=== PATIENT | male | born 1945 | race Two or more races ===

== ENCOUNTER 2023-10-29 22:37 | Emergency (ER) | payer MEDICARE, OTHER ==
[~2023-10-29] VITALS: Ht 188 cm; Wt 81.6 kg
[2023-10-29] MEDS ORDERED: ONDANSETRON HCL/PF 4 MG/2 ML VIAL ONE (23:27)
[2023-10-29] MEDS ORDERED: MORPHINE SULFATE INJ 4 MG/ML DISP.SYRIN ONE (23:27)
[2023-10-29 23:39] LABS: BASOPHILS % (AUTO) 0.3 % (0.0-2.0); EOSINOPHILS # (AUTO) 0.1 K/uL (0.0-0.7); EOSINOPHILS % (AUTO) 1.2 % (0.0-6.0); HEMATOCRIT 28 % (39-51); HEMOGLOBIN 9.6 g/dL (13.5-17.5); LYMPHOCYTES # (AUTO) 1.9 K/uL (0.8-4.8); LYMPHOCYTES % (AUTO) 17.4 % (20.0-44.0); MEAN CORPUSCULAR HEMOGLOBIN 30 PG (26.0-33.0); MEAN CORPUSCULAR HGB CONC 35 g/dl (31.0-36.0); MEAN CORPUSCULAR VOLUME 87 fL (80-96); MONOCYTES # (AUTO) 1.5 K/uL (0.1-1.30); NEUTROPHILS # (AUTO) 7.3 K/uL (1.8-8.9); NEUTROPHILS % (AUTO) 67.1 % (43.0-81.0); PLATELET COUNT (AUTO) 188 K/uL (150-450); RED BLOOD CELL COUNT(AUTO) 3.19 MIL/uL (4.5-6.0); RED CELL DISTRIBUTION WIDTH 14.9 % (11.5-15.0); WHITE BLOOD COUNT (AUTO) 10.8 K/uL (4.3-11.0)
[2023-10-29] MEDS: MORPHINE SULFATE INJ 2 MG/ML DISP.SYRIN IV ONE (23:39)
[2023-10-29] MEDS: ONDANSETRON HCL/PF 4 MG/2 ML VIAL IV ONE (23:39)
[2023-10-29 23:46] LABS: ALANINE AMINOTRANSFERASE 24 U/L (12-78); ALBUMIN 2.6 g/dL (3.4-5.0); ALKALINE PHOSPHATASE 104 U/L (46-116); ASPARTATE AMINOTRANSFERASE 24 U/L (15-37); BILIRUBIN,DIRECT 0.3 mg/dL (0.0-0.2); BILIRUBIN,TOTAL 1.6 mg/dL (0.2-1.0); CALCIUM, SERUM 8.8 mg/dL (8.5-10.1); CARBON DIOXIDE 29 mmol/L (21-32); CHLORIDE 97 mmol/L (98-107); CREATININE 0.9 mg/dL (0.6-1.3); GLUCOSE 137 mg/dL (74-106); POTASSIUM 4.1 mmol/L (3.5-5.1); SODIUM SERUM 134 mmol/L (136-145); TOTAL PROTEIN, SERUM 6.8 g/dL (6.4-8.2); UREA NITROGEN, BLOOD 17 mg/dL (7-18)
[2023-10-29 23:48] LABS: INR 1.38 (0.91-1.10); PARTIAL THROMBOPLASTIN TIME 45.6 SEC (24.3-34.3); PROTHROMBIN TIME 14.3 SECS (9.2-11.1)
[2023-10-30] MEDS ORDERED: MORPHINE SULFATE INJ 4 MG/ML DISP.SYRIN ONE ×2 (04:19→08:27)
[2023-10-30] MEDS: MORPHINE SULFATE INJ 2 MG/ML DISP.SYRIN IV ONE (04:43)
[2023-10-30] MEDS: MORPHINE SULFATE INJ 4 MG/ML DISP.SYRIN IV ONE (08:34)
[2023-10-30 09:18] VITALS: BP 145/86; TEMP 98.8; O2SAT 97
== END 2023-10-30 09:19 ==
LOC: ER 22:39
DX: M25.552 Pain in left hip (principal); I10 Essential (primary) hypertension; E78.5 Hyperlipidemia, unspecified; I48.91 Unspecified atrial fibrillation; F03.90 Unspecified dementia, unspecified severity, without behavioral disturbance, psychotic disturbance, mood disturbance, and anxiety; Z86.73 Personal history of transient ischemic attack (TIA), and cerebral infarction without residual deficits; Z88.2 Allergy status to sulfonamides
CPT/HCPCS: 99285; 96374; 96375; 73503; 85025; 80048; 80076; 36415; 85730; 96376; J2270 ×3; J2405; 73502

== ENCOUNTER 2024-09-08 17:42 | Inpatient (IN) | payer MEDICARE, OTHER ==
[~2024-09-08] VITALS: Ht 175.3 cm; Wt 79.5 kg
[~2024-09-08 17:42] MED LIST: ARGI1POW13 PO
[2024-09-08 18:13] LABS: BASOPHILS % (AUTO) 0.5 % (0.0-2.0); EOSINOPHILS # (AUTO) 0.1 K/uL (0.0-0.7); EOSINOPHILS % (AUTO) 2.2 % (0.0-6.0); HEMATOCRIT 41 % (39-51); HEMOGLOBIN 14.1 g/dL (13.5-17.5); LYMPHOCYTES # (AUTO) 1.1 K/uL (0.8-4.8); LYMPHOCYTES % (AUTO) 16.8 % (20.0-44.0); MEAN CORPUSCULAR HEMOGLOBIN 30 PG (26.0-33.0); MEAN CORPUSCULAR HGB CONC 34 g/dl (31.0-36.0); MEAN CORPUSCULAR VOLUME 88 fL (80-96); MONOCYTES # (AUTO) 0.6 K/uL (0.1-1.30); MONOCYTES % (AUTO) 9.3 % (2.0-12.0); NEUTROPHILS # (AUTO) 4.5 K/uL (1.8-8.9); NEUTROPHILS % (AUTO) 71.2 % (43.0-81.0); PLATELET COUNT (AUTO) 234 K/uL (150-450); RED BLOOD CELL COUNT(AUTO) 4.72 MIL/uL (4.5-6.0); RED CELL DISTRIBUTION WIDTH 16.5 % (11.5-15.0); WHITE BLOOD COUNT (AUTO) 6.4 K/uL (4.3-11.0)
[2024-09-08 18:23] LABS: CALCIUM, SERUM 9.3 mg/dL (8.5-10.1); CARBON DIOXIDE 26 mmol/L (21-32); CHLORIDE 104 mmol/L (98-107); CREATININE 0.7 mg/dL (0.6-1.3); GLUCOSE 110 mg/dL (74-106); POTASSIUM 5.1 mmol/L (3.5-5.1); SODIUM SERUM 137 mmol/L (136-145); UREA NITROGEN, BLOOD 21 mg/dL (7-18)
[2024-09-08 18:25] LABS: INR 1.08 (0.91-1.10); PARTIAL THROMBOPLASTIN TIME 30.5 SEC (24.3-34.3); PROTHROMBIN TIME 11.4 SECS (9.2-11.1)
[2024-09-08 18:30] LABS: ALANINE AMINOTRANSFERASE 33 U/L (12-78); ALBUMIN 2.9 g/dL (3.4-5.0); ALKALINE PHOSPHATASE 184 U/L (46-116); ASPARTATE AMINOTRANSFERASE 41 U/L (15-37); BILIRUBIN,DIRECT 0.2 mg/dL (0.0-0.2); BILIRUBIN,TOTAL 1.2 mg/dL (0.2-1.0); TOTAL PROTEIN, SERUM 8.3 g/dL (6.4-8.2)
[2024-09-08] MEDS ORDERED: IV NS 0.9% 250 ML IV ONE (18:48)
[2024-09-08] MEDS ORDERED: IOHEXOL-350 100 ML VIAL IV ONE (18:48)
[2024-09-08] MEDS ORDERED: POLY17PO4 PO (19:29)
[2024-09-08] MEDS ORDERED: APIX5TAB PO (19:29)
[2024-09-08] MEDS ORDERED: LIDO1ADH71 TP (19:29)
[2024-09-08] MEDS ORDERED: VITS42.53 TP (19:29)
[2024-09-08] MEDS ORDERED: HYDR-4076 PO (19:29)
[2024-09-08] MEDS ORDERED: AMLO-213 PO (19:29)
[2024-09-08] MEDS ORDERED: BACL10TA PO (19:29)
[2024-09-08] MEDS ORDERED: MULT-213 PO (19:29)
[2024-09-08] MEDS ORDERED: MAGNESIUM PO (19:29)
[2024-09-08] MEDS ORDERED: FERR-56 PO (19:29)
[2024-09-08] MEDS ORDERED: DIGO125T PO (19:29)
[2024-09-08] MEDS ORDERED: CLON0.3P TD (19:29)
[2024-09-08] MEDS ORDERED: TRAZ-257 PO (19:29)
[2024-09-08] MEDS ORDERED: IPRA3AMP23 NEB (19:29)
[2024-09-08] MEDS ORDERED: LIDO1ADH82 TP (19:29)
[2024-09-08] MEDS ORDERED: AMOX1TAB16 PO (19:29)
[2024-09-08] MEDS ORDERED: ATOR40TA PO (19:29)
[2024-09-08] MEDS ORDERED: AMIN30LI2 PO (19:29)
[2024-09-08] MEDS ORDERED: BACL5TAB PO (19:29)
[2024-09-08] MEDS ORDERED: BISA10SU12 RC (19:29)
[2024-09-08] MEDS ORDERED: METO100T14 PO (19:29)
[2024-09-08] MEDS ORDERED: MAGN400O6 PO (19:29)
[2024-09-08] MEDS ORDERED: DOCU100C36 PO (19:29)
[2024-09-08] MEDS ORDERED: AMMO225L14 TP (19:29)
[2024-09-08] MEDS ORDERED: ACET-73 PO (19:29)
[2024-09-08] MEDS ORDERED: MELA3TAB41 PO (19:29)
[2024-09-08] MEDS ORDERED: NICO1PAT44 TD (19:29)
[2024-09-08] MEDS ORDERED: TRAM50TA2 PO ×2 (19:29)
[2024-09-08] MEDS ORDERED: TIMO5DRO18 EACHEYE (19:29)
[2024-09-08] MEDS ORDERED: GABA600T12 PO (19:29)
[2024-09-08] MEDS ORDERED: NA P133E RC (19:29)
[2024-09-08] MEDS ORDERED: ZINC454O5 TP (19:29)
[2024-09-08] MEDS ORDERED: MINO2.5T PO (19:29)
[2024-09-08 19:53] LABS: APPEARANCE,URINE CLEAR (CLEAR); BILIRUBIN,URINE NEGATIVE (NEGATIVE); BLOOD, URINE TRACE-INTA Ery/uL (NEGATIVE); COLOR,URINE YELLOW (YELLOW); KETONES,URINE NEGATIVE (NEGATIVE); LEUKOCYTE ESTERASE ,URINE NEGATIVE (NEGATIVE); NITRITE, URINE NEGATIVE (NEGATIVE); PROTEIN,URINE NEGATIVE (NEGATIVE); UGLUCOSE NEGATIVE (NEGATIVE)
[2024-09-08 19:56] LABS: ADD URINE CULTURE NO; BACTERIA,URINE None seen /HPF (None Seen); SQUAMOUS EPITHELIAL CELL,UR None Seen /HPF (None Seen); WBC,URINE 0-2 /HPF (0-3)
[2024-09-08] MEDS ORDERED: VANCOMYCIN 1 GM /D5W 250 ML PB IV ONE (19:57)
[2024-09-08] MEDS ORDERED: CEFEPIME 1 GM VIAL ONE (19:57)
[2024-09-08] MEDS: CEFEPIME 1 GM in IV D5W 50 ML IV ONE (19:58)
[2024-09-08] MEDS: VANCOMYCIN 1 GM in IV D5W 250 ML IV ONE (19:59)
[2024-09-08] MEDS ORDERED: IPRATROPIUM NEB FS 0.5 MG/2.5 ML AMPUL.NEB NEB PRN (21:00)
[2024-09-08] MEDS ORDERED: ALBUTEROL FS 2.5 MG/3 ML VIAL.NEB NEB PRN (21:00)
[2024-09-08] MEDS ORDERED: ACETAMINOPHEN 325 MG TABLET PO PRN (21:00)
[2024-09-08] MEDS ORDERED: DOCUSATE SODIUM 100 MG CAPSULE PO PRN (21:00)
[2024-09-08] MEDS ORDERED: BISACODYL SUPP (10 MG) 10 MG/SUPP.RECT SUPP.RECT RC PRN (21:00)
[2024-09-08] MEDS ORDERED: NA PHOS,M-B/NA PHOS,DI-BA 1 EA ENEMA RC PRN (21:00)
[2024-09-08] MEDS ORDERED: POLYETHYLENE GLYCOL 3350 17 GM POWD.PACK PO PRN (21:00)
[2024-09-08] MEDS ORDERED: MAGNESIUM HYDROXIDE 30 ML UDC PO PRN ×2 (21:00)
[2024-09-08] MEDS ORDERED: Medication Not On Formulary EA (Ipratropium/Albuterol Sulfate (Duoneb 2.5-0.5 Mg/3 Ml So NEB PRN (21:00)
[2024-09-08] MEDS ORDERED: ONDANSETRON HCL/PF 4 MG/2 ML VIAL IVP PRN (21:00)
[2024-09-08] MEDS ORDERED: hydrALAZINE HCL 25 MG TABLET PO PRN (21:00)
[2024-09-08] MEDS ORDERED: MAG HYDROX/AL HYDROX/SIMETH 30 ML UDC PO PRN (21:00)
[2024-09-08] MEDS ORDERED: NICOTINE PATCH (14MG) 14 MG PATCH.TD24 TD PRN (21:00)
[2024-09-08] MEDS ORDERED: Medication Not On Formulary EA (Melatonin 3 MG) PO SCH (22:00)
[2024-09-08] MEDS: ZINC OXIDE 56.7 GM TUBE TP SCH (23:07)
[2024-09-08] MEDS: LIDOCAINE 5% (PATCH) 1 EA PATCH TP PRN (23:07)
[2024-09-08] MEDS: METOPROLOL TARTRATE 50 MG TABLET PO SCH (23:07)
[2024-09-08] MEDS: AMMONIUM LACTATE 227 GM BOTTLE TP SCH (23:07)
[2024-09-08] MEDS: TRAZODONE 50 MG TABLET PO SCH (23:08)
[2024-09-08] MEDS: VANCOMYCIN 500 MG in IV D5W 100ml IV ONE (23:08)
[2024-09-08] MEDS: BACLOFEN (10 MG) 10 MG TABLET PO SCH (23:08)
[2024-09-08] MEDS: ATORVASTATIN 40 MG TABLET PO SCH (23:08)
[2024-09-08] MEDS: LIDOCAINE 5% (PATCH) 1 EA PATCH TP SCH (23:10)
[2024-09-09] VITALS: BP 131/76; TEMP 97.9; O2SAT 96
[2024-09-09] MEDS: TRAMADOL HCL 50 MG TABLET PO PRN (03:45)
[2024-09-09 04:00] VITALS: BP 99/58; TEMP 98.1; O2SAT 96
[2024-09-09] MEDS: CEFEPIME 2 GM in IV D5W 100 ML IV SCH (06:00)
[2024-09-09 07:06] LABS: BASOPHILS % (AUTO) 0.4 % (0.0-2.0); EOSINOPHILS % (AUTO) 0.2 % (0.0-6.0); HEMATOCRIT 35 % (39-51); LYMPHOCYTES # (AUTO) 1.2 K/uL (0.8-4.8); LYMPHOCYTES % (AUTO) 8.6 % (20.0-44.0); MEAN CORPUSCULAR HEMOGLOBIN 30 PG (26.0-33.0); MEAN CORPUSCULAR HGB CONC 34 g/dl (31.0-36.0); MEAN CORPUSCULAR VOLUME 87 fL (80-96); MONOCYTES # (AUTO) 1.2 K/uL (0.1-1.30); MONOCYTES % (AUTO) 8.6 % (2.0-12.0); NEUTROPHILS # (AUTO) 11.4 K/uL (1.8-8.9); NEUTROPHILS % (AUTO) 82.2 % (43.0-81.0); PLATELET COUNT (AUTO) 212 K/uL (150-450); RED BLOOD CELL COUNT(AUTO) 4.03 MIL/uL (4.5-6.0); RED CELL DISTRIBUTION WIDTH 16.2 % (11.5-15.0); WHITE BLOOD COUNT (AUTO) 13.9 K/uL (4.3-11.0)
[2024-09-09 07:13] LABS: CALCIUM, SERUM 8.5 mg/dL (8.5-10.1); CREATININE 1.1 mg/dL (0.6-1.3); MAGNESIUM 2.1 mg/dL (1.8-2.4); PHOSPHORUS 3.4 mg/dL (2.5-4.9); POTASSIUM 4.6 mmol/L (3.5-5.1)
[2024-09-09 08:00] VITALS: BP 110/63; TEMP 97.5; O2SAT 95
[2024-09-09] MEDS: BACLOFEN (10 MG) 10 MG TABLET PO SCH (08:20)
[2024-09-09] MEDS: PANTOPRAZOLE 40 MG TABLET.DR PO SCH (08:20)
[2024-09-09] MEDS: GABAPENTIN 300 MG CAPSULE PO SCH (08:20)
[2024-09-09] MEDS: MULTIVIT W/MINERALS 1 TAB TABLET PO SCH (08:20)
[2024-09-09] MEDS: FERROUS SULFATE (325 MG) 325 MG/TAB TABLET PO SCH (08:20)
[2024-09-09] MEDS: ARGININE/GLUTAMINE/CALCIUM BMB 1 EACH POWD.PACK PO SCH (08:21)
[2024-09-09] MEDS: PROSOURCE / PROSTAT (PYXIS) 30 ML UDC PO SCH (08:22)
[2024-09-09] MEDS: APIXABAN 5 MG TABLET PO SCH (08:23)
[2024-09-09] MEDS: TRAMADOL HCL 50 MG TABLET PO SCH (08:24)
[2024-09-09] MEDS: VANCOMYCIN 1 GM in IV D5W 250ml IV SCH (08:32)
[2024-09-09] MEDS: Z GUARD REMEDY 4 OZ OINT TP PRN (08:44)
[2024-09-09] MEDS: VITAMINS A AND D 56.7 GM TUBE TP SCH (08:45)
[2024-09-09] MEDS: MINOXIDIL (2.5MG) 2.5 MG TABLET PO SCH (09:00)
[2024-09-09] MEDS: AMLODIPINE BESYLATE 10 MG TABLET PO SCH (09:00)
[2024-09-09] MEDS: FUROSEMIDE 40 MG/4 ML VIAL IV SCH (09:49)
[2024-09-09 12:00] VITALS: BP 95/57; TEMP 97.7; O2SAT 96
[2024-09-09 15:01] LABS: OCCULT BLOOD STOOL NEGATIVE (NEGATIVE)
[2024-09-09 16:00] VITALS: BP 102/58; TEMP 98.2; O2SAT 95
[2024-09-09] MEDS: TIMOLOL 0.5% SOLN OPHTH 5 ML BOTTLE EACHEYE SCH (17:31)
[2024-09-09] MEDS: VANCOMYCIN 750 MG in IV D5W 250 ML IV SCH (22:25)
[2024-09-09 22:32] VITALS: BP 102/70; TEMP 97.7; O2SAT 98
[2024-09-10 04:29] VITALS: BP 159/79; TEMP 97; O2SAT 94
[2024-09-10 07:22] LABS: BASOPHILS % (AUTO) 0.6 % (0.0-2.0); EOSINOPHILS # (AUTO) 0.3 K/uL (0.0-0.7); EOSINOPHILS % (AUTO) 3.7 % (0.0-6.0); HEMATOCRIT 43 % (39-51); HEMOGLOBIN 14.3 g/dL (13.5-17.5); LYMPHOCYTES # (AUTO) 1.2 K/uL (0.8-4.8); LYMPHOCYTES % (AUTO) 14.9 % (20.0-44.0); MEAN CORPUSCULAR HEMOGLOBIN 30 PG (26.0-33.0); MEAN CORPUSCULAR HGB CONC 34 g/dl (31.0-36.0); MEAN CORPUSCULAR VOLUME 88 fL (80-96); MONOCYTES % (AUTO) 12.2 % (2.0-12.0); NEUTROPHILS # (AUTO) 5.4 K/uL (1.8-8.9); NEUTROPHILS % (AUTO) 68.6 % (43.0-81.0); PLATELET COUNT (AUTO) 212 K/uL (150-450); RED BLOOD CELL COUNT(AUTO) 4.86 MIL/uL (4.5-6.0); RED CELL DISTRIBUTION WIDTH 16.1 % (11.5-15.0); WHITE BLOOD COUNT (AUTO) 7.8 K/uL (4.3-11.0)
[2024-09-10 08:00] VITALS: BP 149/90; TEMP 97.3; O2SAT 97
[2024-09-10 08:00] LABS: CALCIUM, SERUM 9.1 mg/dL (8.5-10.1); CREATININE 0.8 mg/dL (0.6-1.3); MAGNESIUM 2.3 mg/dL (1.8-2.4); PHOSPHORUS 3.9 mg/dL (2.5-4.9); POTASSIUM 3.9 mmol/L (3.5-5.1)
[2024-09-10] MEDS: FUROSEMIDE 40 MG/4 ML VIAL IV SCH (09:23)
[2024-09-10] MEDS: POTASSIUM CHLORIDE 20 MEQ TAB.PRT.SR PO SCH (09:23)
[2024-09-10 11:22] VITALS: BP 100/67; TEMP 97.9; O2SAT 95
[2024-09-10] MEDS: ENOXAPARIN SODIUM 80 MG/0.8 ML DISP.SYRIN SQ SCH (12:26)
[2024-09-10] MEDS: DIGOXIN 0.125 MG TABLET PO SCH (13:00)
[2024-09-10 16:00] VITALS: BP 126/75; TEMP 98.2; O2SAT 97
[2024-09-10] MEDS ORDERED: APIXABAN 5 MG TABLET PO SCH (17:00)
[2024-09-10 20:12] VITALS: BP 114/64; TEMP 97.9; O2SAT 97
[2024-09-11 00:36] VITALS: BP 114/51; TEMP 97.9; O2SAT 96
[2024-09-11 02:00] LABS: OCCULT BLOOD STOOL NEGATIVE (NEGATIVE)
[2024-09-11 04:12] VITALS: BP 105/66; TEMP 97.9; O2SAT 95
[2024-09-11 07:22] LABS: D-DIMER 2.16 mg/L(FEU (0.17-0.50); INR 1.07 (0.91-1.10); PARTIAL THROMBOPLASTIN TIME 32.8 SEC (24.3-34.3); PROTHROMBIN TIME 11.3 SECS (9.2-11.1)
[2024-09-11 07:23] LABS: BASOPHILS # (AUTO) 0.1 K/uL (0.0-0.2); BASOPHILS % (AUTO) 0.7 % (0.0-2.0); EOSINOPHILS # (AUTO) 0.3 K/uL (0.0-0.7); EOSINOPHILS % (AUTO) 3.3 % (0.0-6.0); HEMATOCRIT 38 % (39-51); HEMOGLOBIN 12.9 g/dL (13.5-17.5); LYMPHOCYTES # (AUTO) 1.3 K/uL (0.8-4.8); LYMPHOCYTES % (AUTO) 15.3 % (20.0-44.0); MEAN CORPUSCULAR HEMOGLOBIN 30 PG (26.0-33.0); MEAN CORPUSCULAR HGB CONC 34 g/dl (31.0-36.0); MEAN CORPUSCULAR VOLUME 87 fL (80-96); MONOCYTES # (AUTO) 1.1 K/uL (0.1-1.30); MONOCYTES % (AUTO) 12.5 % (2.0-12.0); NEUTROPHILS # (AUTO) 5.9 K/uL (1.8-8.9); NEUTROPHILS % (AUTO) 68.2 % (43.0-81.0); PLATELET COUNT (AUTO) 227 K/uL (150-450); RED BLOOD CELL COUNT(AUTO) 4.36 MIL/uL (4.5-6.0); RED CELL DISTRIBUTION WIDTH 16.1 % (11.5-15.0); WHITE BLOOD COUNT (AUTO) 8.6 K/uL (4.3-11.0)
[2024-09-11 07:26] LABS: CALCIUM, SERUM 8.7 mg/dL (8.5-10.1); CREATININE 0.9 mg/dL (0.6-1.3); MAGNESIUM 2.2 mg/dL (1.8-2.4); PHOSPHORUS 3.8 mg/dL (2.5-4.9)
[2024-09-11 08:00] VITALS: BP 160/84; TEMP 98.4; O2SAT 96
[2024-09-11 08:13] LABS: THYROID STIMULATING HORMONE 2.28 uIU/mL (0.358-3.74)
[2024-09-11] MEDS: FUROSEMIDE 100 MG/10 ML VIAL IV SCH (10:31)
[2024-09-11 11:31] LABS: POTASSIUM 4.3 mmol/L (3.5-5.1)
[2024-09-11 12:00] VITALS: BP 110/66; TEMP 98.8; O2SAT 97
[2024-09-11 16:00] VITALS: BP_SYST 121; BP_DIAS 100; BP_DIAS 64; TEMP 98.6; O2SAT 94; O2SAT 97
[2024-09-11] MEDS: FERROUS SULFATE (325 MG) 325 MG/TAB TABLET PO SCH (17:52)
[2024-09-11 21:49] VITALS: BP 94/66; TEMP 97.9; O2SAT 96
[2024-09-12] VITALS (9 sets, daily range): BP systolic 95–142; BP diastolic 48–68; TEMP 97.2–99; O2SAT 96–99
[2024-09-12 06:41] LABS: BASOPHILS # (AUTO) 0.1 K/uL (0.0-0.2); BASOPHILS % (AUTO) 0.7 % (0.0-2.0); EOSINOPHILS # (AUTO) 0.2 K/uL (0.0-0.7); EOSINOPHILS % (AUTO) 2.6 % (0.0-6.0); HEMATOCRIT 40 % (39-51); HEMOGLOBIN 13.5 g/dL (13.5-17.5); LYMPHOCYTES # (AUTO) 1.4 K/uL (0.8-4.8); LYMPHOCYTES % (AUTO) 17.4 % (20.0-44.0); MEAN CORPUSCULAR HEMOGLOBIN 29 PG (26.0-33.0); MEAN CORPUSCULAR HGB CONC 34 g/dl (31.0-36.0); MEAN CORPUSCULAR VOLUME 86 fL (80-96); MONOCYTES % (AUTO) 12.6 % (2.0-12.0); NEUTROPHILS # (AUTO) 5.2 K/uL (1.8-8.9); NEUTROPHILS % (AUTO) 66.7 % (43.0-81.0); PLATELET COUNT (AUTO) 250 K/uL (150-450); RED BLOOD CELL COUNT(AUTO) 4.65 MIL/uL (4.5-6.0); RED CELL DISTRIBUTION WIDTH 15.8 % (11.5-15.0); WHITE BLOOD COUNT (AUTO) 7.9 K/uL (4.3-11.0)
[2024-09-12 06:51] LABS: ALBUMIN 2.6 g/dL (3.4-5.0); CALCIUM, SERUM 9.3 mg/dL (8.5-10.1); CREATININE 0.9 mg/dL (0.6-1.3); MAGNESIUM 2.3 mg/dL (1.8-2.4); PHOSPHORUS 3.8 mg/dL (2.5-4.9); POTASSIUM 3.7 mmol/L (3.5-5.1); TOTAL PROTEIN, SERUM 7.6 g/dL (6.4-8.2)
[2024-09-12 08:07] LABS: FOLIC ACID 10.9 ng/mL (>3.0); IMMUNOGLOBULIN A, SERUM 255 mg/dL (61-437); IMMUNOGLOBULIN G, SERUM 1628 mg/dL (603-1613); IMMUNOGLOBULIN M, SERUM 122 mg/dL (15-143)
[2024-09-12] MEDS ORDERED: POTASSIUM CHLORIDE 20 MEQ TAB.PRT.SR PO SCH (09:00)
[2024-09-12] MEDS: FUROSEMIDE 100 MG/10 ML VIAL IV SCH (09:14)
[2024-09-12] MEDS: POTASSIUM CHLORIDE 20 MEQ POWDER PACKET PO SCH (09:18)
[2024-09-12 15:10] LABS: FREE KAPPA LT CHAINS SERUM 47.1 mg/L (3.3-19.4); FREE LAMBDA LT CHAIN SERUM 36.3 mg/L (5.7-26.3)
[2024-09-12] MEDS: ENOXAPARIN SODIUM 80 MG/0.8 ML DISP.SYRIN SQ SCH (21:02)
[2024-09-13 04:00] VITALS: BP 117/75; TEMP 97.5; O2SAT 98
[2024-09-13 06:29] LABS: BASOPHILS % (AUTO) 0.6 % (0.0-2.0); EOSINOPHILS # (AUTO) 0.2 K/uL (0.0-0.7); HEMATOCRIT 42 % (39-51); LYMPHOCYTES # (AUTO) 1.9 K/uL (0.8-4.8); LYMPHOCYTES % (AUTO) 26.3 % (20.0-44.0); MEAN CORPUSCULAR HEMOGLOBIN 29 PG (26.0-33.0); MEAN CORPUSCULAR HGB CONC 34 g/dl (31.0-36.0); MEAN CORPUSCULAR VOLUME 86 fL (80-96); MONOCYTES # (AUTO) 0.9 K/uL (0.1-1.30); MONOCYTES % (AUTO) 12.5 % (2.0-12.0); NEUTROPHILS # (AUTO) 4.1 K/uL (1.8-8.9); NEUTROPHILS % (AUTO) 57.6 % (43.0-81.0); PLATELET COUNT (AUTO) 256 K/uL (150-450); RED BLOOD CELL COUNT(AUTO) 4.85 MIL/uL (4.5-6.0); RED CELL DISTRIBUTION WIDTH 15.7 % (11.5-15.0); WHITE BLOOD COUNT (AUTO) 7.2 K/uL (4.3-11.0)
[2024-09-13 07:18] LABS: ALBUMIN 2.7 g/dL (3.4-5.0); CALCIUM, SERUM 9.8 mg/dL (8.5-10.1); CREATININE 0.8 mg/dL (0.6-1.3); MAGNESIUM 2.4 mg/dL (1.8-2.4); PHOSPHORUS 3.6 mg/dL (2.5-4.9); POTASSIUM 4.2 mmol/L (3.5-5.1)
[2024-09-13 07:35] LABS: DIGOXIN 0.27 ng/mL (0.90-2.00)
[2024-09-13] MEDS: POTASSIUM CHLORIDE 20 MEQ TAB.PRT.SR PO SCH (09:05)
[2024-09-13] MEDS: FUROSEMIDE 40 MG/4 ML VIAL IV SCH (09:12)
[2024-09-13 16:10] LABS: *CARD ANTI-CARDIOLIPIN AB IgG <9 GPL U/mL (0-14); *CARD ANTI-CARDIOLIPIN AB IgM <9 MPL U/mL (0-12)
[2024-09-13 20:00] VITALS: BP 121/60; TEMP 97.8; O2SAT 97
[2024-09-13 20:31] VITALS: BP 121/60; TEMP 97.8; O2SAT 97
[2024-09-14] VITALS: BP 98/43; TEMP 97.7; O2SAT 97
[2024-09-14 05:00] VITALS: BP 136/66; TEMP 97.8; O2SAT 99
[2024-09-14 07:10] LABS: BASOPHILS % (AUTO) 0.6 % (0.0-2.0); EOSINOPHILS # (AUTO) 0.2 K/uL (0.0-0.7); EOSINOPHILS % (AUTO) 3.6 % (0.0-6.0); HEMATOCRIT 40 % (39-51); HEMOGLOBIN 13.3 g/dL (13.5-17.5); LYMPHOCYTES # (AUTO) 1.5 K/uL (0.8-4.8); LYMPHOCYTES % (AUTO) 22.1 % (20.0-44.0); MEAN CORPUSCULAR HEMOGLOBIN 29 PG (26.0-33.0); MEAN CORPUSCULAR HGB CONC 33 g/dl (31.0-36.0); MEAN CORPUSCULAR VOLUME 87 fL (80-96); MONOCYTES % (AUTO) 15.4 % (2.0-12.0); NEUTROPHILS # (AUTO) 3.9 K/uL (1.8-8.9); NEUTROPHILS % (AUTO) 58.3 % (43.0-81.0); PLATELET COUNT (AUTO) 208 K/uL (150-450); RED BLOOD CELL COUNT(AUTO) 4.59 MIL/uL (4.5-6.0); RED CELL DISTRIBUTION WIDTH 15.6 % (11.5-15.0); WHITE BLOOD COUNT (AUTO) 6.8 K/uL (4.3-11.0)
[2024-09-14 07:51] LABS: ALBUMIN 2.5 g/dL (3.4-5.0); BILIRUBIN,TOTAL 0.7 mg/dL (0.2-1.0); CALCIUM, SERUM 9.3 mg/dL (8.5-10.1); CREATININE 0.7 mg/dL (0.6-1.3); MAGNESIUM 2.6 mg/dL (1.8-2.4); PHOSPHORUS 4.1 mg/dL (2.5-4.9); POTASSIUM 4.2 mmol/L (3.5-5.1); TOTAL PROTEIN, SERUM 7.2 g/dL (6.4-8.2)
[2024-09-14 08:47] VITALS: BP 120/56; TEMP 97.6; O2SAT 96
[2024-09-14] MEDS: CLONIDINE HCL 0.3 MG/24H PTWK 1 EA PATCH TD SCH (09:00)
[2024-09-14 13:26] VITALS: BP 125/67; TEMP 97.5; O2SAT 97
[2024-09-14 20:00] VITALS: BP 110/49; TEMP 98.1; O2SAT 98
[2024-09-14 21:35] VITALS: BP 110/50; TEMP 98.1; O2SAT 98
[2024-09-15 05:08] VITALS: BP 102/58; TEMP 97.7; O2SAT 98
[2024-09-15 06:48] LABS: BASOPHILS % (AUTO) 0.5 % (0.0-2.0); CALCIUM, SERUM 9.2 mg/dL (8.5-10.1); EOSINOPHILS # (AUTO) 0.2 K/uL (0.0-0.7); EOSINOPHILS % (AUTO) 3.2 % (0.0-6.0); HEMATOCRIT 37 % (39-51); HEMOGLOBIN 12.5 g/dL (13.5-17.5); LYMPHOCYTES # (AUTO) 1.9 K/uL (0.8-4.8); LYMPHOCYTES % (AUTO) 24.7 % (20.0-44.0); MAGNESIUM 2.5 mg/dL (1.8-2.4); MEAN CORPUSCULAR HEMOGLOBIN 30 PG (26.0-33.0); MEAN CORPUSCULAR HGB CONC 34 g/dl (31.0-36.0); MEAN CORPUSCULAR VOLUME 88 fL (80-96); MONOCYTES # (AUTO) 1.1 K/uL (0.1-1.30); MONOCYTES % (AUTO) 14.6 % (2.0-12.0); NEUTROPHILS # (AUTO) 4.3 K/uL (1.8-8.9); PHOSPHORUS 3.9 mg/dL (2.5-4.9); PLATELET COUNT (AUTO) 211 K/uL (150-450); POTASSIUM 4.4 mmol/L (3.5-5.1); RED BLOOD CELL COUNT(AUTO) 4.18 MIL/uL (4.5-6.0); RED CELL DISTRIBUTION WIDTH 15.6 % (11.5-15.0); WHITE BLOOD COUNT (AUTO) 7.5 K/uL (4.3-11.0)
[2024-09-15 20:00] VITALS: BP 121/59; TEMP 98.4; O2SAT 99
[2024-09-15] MEDS: TOBRAMYCIN OPHTH 5ML 5 ML BOTTLE LEFTEYE SCH (21:19)
[2024-09-16] VITALS (9 sets, daily range): BP systolic 104–142; BP diastolic 51–85; TEMP 97.7–98.2; O2SAT 96–100
[2024-09-16] MEDS: ACETAMINOPHEN ES 500 MG TABLET PO PRN (01:28)
[2024-09-16 06:55] LABS: D-DIMER 1.72 mg/L(FEU (0.17-0.50); INR 1.04 (0.91-1.10); PARTIAL THROMBOPLASTIN TIME 34.7 SEC (24.3-34.3)
[2024-09-16 07:11] LABS: BASOPHILS # (AUTO) 0.1 K/uL (0.0-0.2); BASOPHILS % (AUTO) 0.8 % (0.0-2.0); EOSINOPHILS # (AUTO) 0.2 K/uL (0.0-0.7); EOSINOPHILS % (AUTO) 3.3 % (0.0-6.0); HEMATOCRIT 41 % (39-51); HEMOGLOBIN 13.4 g/dL (13.5-17.5); LYMPHOCYTES # (AUTO) 1.7 K/uL (0.8-4.8); LYMPHOCYTES % (AUTO) 24.6 % (20.0-44.0); MEAN CORPUSCULAR HEMOGLOBIN 29 PG (26.0-33.0); MEAN CORPUSCULAR HGB CONC 33 g/dl (31.0-36.0); MEAN CORPUSCULAR VOLUME 88 fL (80-96); MONOCYTES # (AUTO) 0.9 K/uL (0.1-1.30); MONOCYTES % (AUTO) 13.7 % (2.0-12.0); NEUTROPHILS % (AUTO) 57.6 % (43.0-81.0); PLATELET COUNT (AUTO) 223 K/uL (150-450); RED BLOOD CELL COUNT(AUTO) 4.67 MIL/uL (4.5-6.0); RED CELL DISTRIBUTION WIDTH 15.3 % (11.5-15.0); WHITE BLOOD COUNT (AUTO) 6.9 K/uL (4.3-11.0)
[2024-09-16 07:37] LABS: ALBUMIN 2.8 g/dL (3.4-5.0); BILIRUBIN,TOTAL 0.8 mg/dL (0.2-1.0); CALCIUM, SERUM 9.4 mg/dL (8.5-10.1); CREATININE 0.8 mg/dL (0.6-1.3); MAGNESIUM 2.4 mg/dL (1.8-2.4); PHOSPHORUS 3.6 mg/dL (2.5-4.9); POTASSIUM 4.5 mmol/L (3.5-5.1); TOTAL PROTEIN, SERUM 7.9 g/dL (6.4-8.2)
[2024-09-17] VITALS: BP 125/75; TEMP 97.9; O2SAT 96
[2024-09-17 04:00] VITALS: BP 150/95; TEMP 98; O2SAT 100
[2024-09-17 06:47] LABS: BASOPHILS % (AUTO) 0.6 % (0.0-2.0); EOSINOPHILS # (AUTO) 0.2 K/uL (0.0-0.7); EOSINOPHILS % (AUTO) 4.2 % (0.0-6.0); HEMATOCRIT 41 % (39-51); HEMOGLOBIN 13.8 g/dL (13.5-17.5); LYMPHOCYTES # (AUTO) 1.7 K/uL (0.8-4.8); MEAN CORPUSCULAR HEMOGLOBIN 29 PG (26.0-33.0); MEAN CORPUSCULAR HGB CONC 34 g/dl (31.0-36.0); MEAN CORPUSCULAR VOLUME 87 fL (80-96); MONOCYTES # (AUTO) 0.8 K/uL (0.1-1.30); MONOCYTES % (AUTO) 14.4 % (2.0-12.0); NEUTROPHILS # (AUTO) 2.9 K/uL (1.8-8.9); NEUTROPHILS % (AUTO) 50.8 % (43.0-81.0); PLATELET COUNT (AUTO) 199 K/uL (150-450); RED BLOOD CELL COUNT(AUTO) 4.75 MIL/uL (4.5-6.0); RED CELL DISTRIBUTION WIDTH 15.6 % (11.5-15.0); WHITE BLOOD COUNT (AUTO) 5.8 K/uL (4.3-11.0)
[2024-09-17 07:03] LABS: CALCIUM, SERUM 9.6 mg/dL (8.5-10.1); CREATININE 0.7 mg/dL (0.6-1.3); MAGNESIUM 2.3 mg/dL (1.8-2.4); POTASSIUM 4.8 mmol/L (3.5-5.1)
[2024-09-17 08:00] VITALS: BP 177/90; TEMP 97.2; O2SAT 94
[2024-09-17 08:30] VITALS: BP 182/96; TEMP 97.2; O2SAT 94
[2024-09-17] MEDS: ENOXAPARIN SODIUM 80 MG/0.8 ML DISP.SYRIN SQ SCH (11:10)
[2024-09-17 11:50] VITALS: BP 144/71; TEMP 97.5; O2SAT 98
[2024-09-17 18:11] LABS: *ANTITHROMBIN III AG 103 % (72-124); *DILUTE PROTHROMBIN TIME (dPT) 46.3 sec (0.0-47.6); *THROMBIN TIME 18.2 sec (0.0-23.0); *dPT CONFIRM RATIO 0.95 Ratio (0.00-1.34); *dRVVT 52.1 sec (0.0-47.0); ANTITHROMBIN III ACTIVITY 110 % (75-135); PROTEIN C ACTIVITY 104 % (73-180)
== END 2024-09-17 15:35 | DRG 193 ==
LOC: ER 17:45 → MED 20:48 → TELE 21:01
PROVIDERS: ADMIT Nurse Practitioner Family; ATTEND Student in an Organized Health Care Education/Training Program
DX: J15.9 Unspecified bacterial pneumonia (principal); I50.31 Acute diastolic (congestive) heart failure; J96.01 Acute respiratory failure with hypoxia; D68.59 Other primary thrombophilia; E87.1 Hypo-osmolality and hyponatremia; N17.9 Acute kidney failure, unspecified; J90 Pleural effusion, not elsewhere classified; E44.0 Moderate protein-calorie malnutrition; I82.412 Acute embolism and thrombosis of left femoral vein; I82.432 Acute embolism and thrombosis of left popliteal vein; I82.612 Acute embolism and thrombosis of superficial veins of left upper extremity; H44.002 Unspecified purulent endophthalmitis, left eye; I48.91 Unspecified atrial fibrillation; Z79.01 Long term (current) use of anticoagulants; E88.09 Other disorders of plasma-protein metabolism, not elsewhere classified; G62.9 Polyneuropathy, unspecified; G89.29 Other chronic pain; I11.0 Hypertensive heart disease with heart failure; E80.6 Other disorders of bilirubin metabolism; E83.9 Disorder of mineral metabolism, unspecified; Z86.73 Personal history of transient ischemic attack (TIA), and cerebral infarction without residual deficits; Z88.2 Allergy status to sulfonamides; R73.9 Hyperglycemia, unspecified; Z68.25 Body mass index [BMI] 25.0-25.9, adult; Z87.01 Personal history of pneumonia (recurrent); D50.9 Iron deficiency anemia, unspecified; E78.5 Hyperlipidemia, unspecified
CPT/HCPCS: 36415; 36600; 71045-TC; 80048-TC; 80053-TC; 80076-TC; 80162-TC; 80202-TC; 81001; 81240; 81241; 82272-TC; 82607-TC; 82728-TC; 82784; 82803-TC; 83540-TC; 83605-TC; 83735-TC; 83880; 84100-TC; 84155; 84165; 84443-TC; 85025-TC; 85300; 85301; 85303; 85378-TC; 85396; 85613; 85670; 85705; 85730-TC; 85732; 86147; 86334; 87040-TC; 87081-TC; 87086-TC; 93307-TC; 93970-TC; 97110-TC; 97530-TC; A4223; G0378; J0692; J1650; J1938; J3370; J3371; J7050; J7060; Q9967